=== PATIENT | male | born 1990 | race Caucasian/White ===

== ENCOUNTER 2016-10-19 23:53 | Emergency (ER) | payer SELFPAY ==
[~2016-10-19] VITALS: Ht 193 cm; Wt 70.3 kg
[2016-10-20 00:06] VITALS: BP 136/86
== END 2016-10-20 03:08 | disposition left against medical advice (07) ==
LOC: EDBD 23:53 → ER 23:53
DX: R40.1 Stupor (principal); R22.0 Localized swelling, mass and lump, head; Z53.21 Procedure and treatment not carried out due to patient leaving prior to being seen by health care provider; Y08.89XA Assault by other specified means, initial encounter; Y93.89 Activity, other specified; Y99.8 Other external cause status; Y92.89 Other specified places as the place of occurrence of the external cause
CPT/HCPCS: 70450; 80307